=== PATIENT | male | born 1985 | race African-American/Black ===

== ENCOUNTER 2017-04-08 13:18 | Emergency (ER) | payer SELFPAY ==
[~2017-04-08] VITALS: Ht 182.9 cm; Wt 74.8 kg
[2017-04-08 13:45] VITALS: BP 131/79
[2017-04-08] MEDS ORDERED: PROC10TA57 PO (14:15)
[2017-04-08] MEDS ORDERED: AMOX1TAB61 PO (14:15)
[2017-04-08] MEDS ORDERED: FLUT9.9S NS (14:15)
--- NOTE | 2017-04-08 14:15 | PHYS DOC ---
Past Medical History Past Medical History: No Pertinent History Past Surgical History: No Surgical History Alcohol Use: Sober Drug Use: Marijuana Adult General Chief Complaint Chief Complaint: NAUSEA/VOMITING/DIARRHA HPI HPI Patient is a 31 year old female with no significant medical history who presents today with multiple, complaints. Patient is complaining of nasal congestion, sinus pressure both maxillary and frontal that began one week ago. Patient denies any fever. Patient's also complaining of intermittent episodes of dizziness. Patient states he believes he has a sinus infection. Patient's also complaining of nausea that began yesterday with some vomiting. Denies any abdominal pain. Denies any diarrhea. Review of Systems Review of Systems Constitutional: See history of present illness Eyes: Denies change in visual acuity, redness, or eye pain [] HENT: Nasal congestion, sore throat [] Respiratory: Denies cough or shortness of breath [] Cardiovascular: No additional information not addressed in HPI [] GI: nausea, vomiting, : Denies dysuria or hematuria [] Musculoskeletal: Denies back pain or joint pain [] Integument: Denies rash or skin lesions [] Neurologic: Denies headache, focal weakness or sensory changes [] Endocrine: Denies polyuria or polydipsia [] Allergies Allergies Allergies Coded Allergies Type Severity Reaction Last Updated Verified No Known Drug Allergies 11/20/13 No Physical Exam Physical Exam Constitutional: Well developed, well nourished, no acute distress, non-toxic appearance. [] HENT: Normocephalic, atraumatic, bilateral external ears normal, oropharynx moist, no oral exudates, nose normal. [] Mild frontal and maxillary sinus tenderness. Eyes: PERRLA, EOMI, conjunctiva normal, no discharge. [] Neck: Normal range of motion, no tenderness, supple, no stridor. [] Cardiovascular:Heart rate regular rhythm, no murmur [] Lungs & Thorax: Bilateral breath sounds clear to auscultation [] Abdomen: Bowel sounds normal, soft, no tenderness, no masses, no pulsatile masses. [] Skin: Warm, dry, no erythema, no rash. [] Back: No tenderness, no CVA tenderness. [] Extremities: No tenderness, no cyanosis, no clubbing, ROM intact, no edema. [] Neurologic: Alert and oriented X 3, normal motor function, normal sensory function, no focal deficits noted. [] Psychologic: Affect normal, judgement normal, mood normal. [] Current Patient Data Vital Signs Vital Signs Date Time Temp Pulse Resp B/P (MAP) Pulse Ox O2 Delivery O2 Flow Rate FiO2 04/08/17 13:45 97.9 64 16 99 Room Air 97.9 EKG EKG [] Radiology/Procedures Radiology/Procedures [] Course & Med Decision Making Course & Med Decision Making Pertinent Labs and Imaging studies reviewed. (See chart for details) Patient is in the ED with acute sinusitis. Discharged with a give Augmentin and Flonase. He was also complaining of nausea and vomiting. I suspect this is viral. Discharged with Compazine. Instructed to push fluids. Instructed to follow-up with his own doctor in 1-2 weeks. Discharged in stable condition. Dragon Disclaimer Dragon Disclaimer This electronic medical record was generated, in whole or in part, using a voice recognition dictation system. Departure Departure Impression: Primary Impression: Acute sinusitis Additional Impression: Nausea and vomiting Disposition: 01 HOME, SELF-CARE Condition: STABLE Patient Instructions: Nausea and Vomiting, Sinusitis Additional Instructions: You were seen for acute sinusitis. Please complete your antibiotics. Nausea and vomiting are probably viral. Push fluids. Take Zofran as needed. Follow-up with your own doctor in 1-2 weeks. Scripts Fluticasone Propionate (Flonase Allergy Relief) 9.9 Ml Stuart.susp 2 SPRAYS NS DAILY, #1 BOTTLE Prov: CHRISTA TONG APRN 04/08/17 Amoxicillin/Potassium Clav (AUGMENTIN 875-125 TABLET) 1 Each Tablet 1 TAB PO BID, #20 TAB Prov: CHRISTA TONG APRN 04/08/17 Prochlorperazine Maleate (Compazine) 10 Mg Tablet 10 MG PO Q8HRS, #30 TAB Prov: CHRISTA TONG APRN 04/08/17 Problem Qualifiers Primary Impression: Acute sinusitis Sinusitis location: frontal Recurrence: non-recurrent Qualified Codes: J01.10 - Acute frontal sinusitis, unspecified Additional Impression: Nausea and vomiting Vomiting type: unspecified Vomiting Intractability: non-intractable Qualified Codes: R11.2 - Nausea with vomiting, unspecified CHRISTA TONG APRN April 08, 2017 14:15
== END 2017-04-08 14:24 | disposition home or self-care (01) ==
LOC: ER 14:23
DX: J01.10 Acute frontal sinusitis, unspecified (principal); J01.00 Acute maxillary sinusitis, unspecified; R11.2 Nausea with vomiting, unspecified; R42 Dizziness and giddiness; F12.10 Cannabis abuse, uncomplicated
CPT/HCPCS: 99283

== ENCOUNTER 2017-05-03 15:49 | Emergency (ER) | payer SELFPAY ==
[~2017-05-03] VITALS: Ht 182.9 cm; Wt 74.8 kg
[~2017-05-03 15:49] MED LIST: AMOX1TAB61 PO; FLUT9.9S NS; PROC10TA57 PO
[2017-05-03] MEDS ORDERED: MECLIZINE HCL 12.5 MG TABLET. PO ONE (16:30)
[2017-05-03] MEDS ORDERED: IV NORMAL SALINE 1000ML BAG 1,000 ML IV ONE (16:30)
--- NOTE | 2017-05-03 16:31 | EKG ---
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
--- NOTE | 2017-05-03 16:37 | PHYS DOC ---
Past Medical History Past Medical History: No Pertinent History, Other Past Surgical History: No Surgical History Alcohol Use: Sober Drug Use: Marijuana Adult General Chief Complaint Chief Complaint: DIZZY/LIGHT HEADED HPI HPI Patient is a 31 year old male who presents with intermittent dizziness associated with fatigue and n/v over the past 4 days. States his emesis has resolved. He has minutes of dizziness at a time. Feels better when he is still. He denies fever or chills, vision changes, numbness, tingling, weakness, neck pain or manipulation. States he was treated for sinusitis recently and it improved. He denies ear pain or tinnitus. No diplopia. Review of Systems Review of Systems Constitutional: Denies fever or chills [] Eyes: Denies change in visual acuity, redness, or eye pain [] HENT: Denies nasal congestion or sore throat [] Respiratory: Denies cough or shortness of breath [] Cardiovascular: No additional information not addressed in HPI [] GI: Denies abdominal pain, bloody stools or diarrhea [] : Denies dysuria or hematuria [] Musculoskeletal: Denies back pain or joint pain [] Integument: Denies rash or skin lesions [] Neurologic: Denies headache, focal weakness or sensory changes [] Endocrine: Denies polyuria or polydipsia [] Current Medications Current Medications Current Medications Medications (Trade) Dose Ordered Sig/Aleksey Start Time Stop Time Status Last Admin Dose Admin Meclizine HCl (Antivert) 25 mg 1X ONCE 05/03/17 16:30 05/03/17 16:31 DC 05/03/17 16:30 25 MG Sodium Chloride 1,000 ml @ 1,000 mls/hr 1X ONCE 05/03/17 16:30 05/03/17 17:29 DC 05/03/17 16:30 1,000 MLS/HR Allergies Allergies Allergies Coded Allergies Type Severity Reaction Last Updated Verified No Known Drug Allergies 11/20/13 No Physical Exam Physical Exam Constitutional: Well developed, well nourished, no acute distress, non-toxic appearance. [] HENT: Normocephalic, atraumatic, bilateral external ears and TMs normal, oropharynx moist, no oral exudates, nose normal. [] Eyes: PERRLA, EOMI, conjunctiva normal, no discharge. [] Neck: Normal range of motion, no tenderness, supple. [] Cardiovascular:Heart rate regular rhythm [] Lungs & Thorax: Bilateral breath sounds clear to auscultation [] Abdomen: Bowel sounds normal, soft, no tenderness. [] Skin: Warm, dry, no erythema, no rash. [] Back: Normal range of motion. [] Extremities: No tenderness, ROM intact, no edema. [] Neurologic: Alert and oriented X 3, normal motor function, normal sensory function, no focal deficits noted, cranial nerves II through XII intact. [] Psychologic: Affect normal, judgement normal, mood normal. [] Current Patient Data Vital Signs Vital Signs Date Time Temp Pulse Resp B/P (MAP) Pulse Ox O2 Delivery O2 Flow Rate FiO2 05/03/17 17:44 62 21 123/79 (94) 99 05/03/17 16:44 Room Air 05/03/17 16:00 98.5 98.5 Lab Values Laboratory Tests Test 05/03/17 16:30 Sodium Level 144 mmol/L (136-145) Potassium Level 3.7 mmol/L (3.5-5.1) Chloride Level 105 mmol/L (98-107) Carbon Dioxide Level 32 mmol/L (21-32) Anion Gap 7 (6-14) Blood Urea Nitrogen 6 mg/dL (8-26) L Creatinine 1.0 mg/dL (0.7-1.3) Estimated GFR (Cockcroft-Gault) 104.8 Glucose Level 98 mg/dL (70-99) Calcium Level 9.2 mg/dL (8.5-10.1) Laboratory Tests 05/03/17 16:30 Radiology/Procedures Radiology/Procedures CT head without contrast IMPRESSION: 1. No acute intracranial abnormality is detected. 2. Fluid in the left maxillary sinus suggesting acute sinusitis. DICTATED and SIGNED BY: ANUM ELIZABETH MD DATE: 05/03/17 7776 Course & Med Decision Making Course & Med Decision Making Pertinent Labs and Imaging studies reviewed. (See chart for details) Workup is unremarkable. He is feeling better after medications here and like to go home. Return precautions given. He understands and agrees with plan. Dragon Disclaimer Dragon Disclaimer This electronic medical record was generated, in whole or in part, using a voice recognition dictation system. Departure Departure Impression: Primary Impression: Dizziness Additional Impressions: Nausea & vomiting Sinusitis Disposition: 01 HOME, SELF-CARE Condition: STABLE Referrals: NO PCP (PCP) Patient Instructions: Vertigo, [id number] Additional Instructions: Take meclizine as needed for dizziness. Use Flonase nasal spray to help with sinusitis. Take promethazine as needed for nausea. Follow-up with your primary care doctor. Return for any concerns. Scripts Promethazine Hcl (PROMETHAZINE HCL) 25 Mg Tablet 1 TAB PO PRN Q6HRS Y for NAUSEA/VOMITING, #20 TAB Prov: Jerilyn BETHEA MD 05/03/17 Meclizine Hcl (MECLIZINE HCL) 25 Mg Tablet 1 TAB PO PRN TID Y for DIZZINESS, #30 TAB Prov: Jerilyn BETHEA MD 05/03/17 Problem Qualifiers Additional Impressions: Nausea & vomiting Vomiting type: unspecified Vomiting Intractability: non-intractable Qualified Codes: R11.2 - Nausea with vomiting, unspecified Sinusitis Sinusitis location: maxillary Chronicity: acute Recurrence: not specified as recurrent Qualified Codes: J01.00 - Acute maxillary sinusitis, unspecified Jerilyn BETHEA MD May 03, 2017 16:37
--- NOTE | 2017-05-03 16:53 | RAD ---
CT of the head without contrast, 05/03/2017: History: Dizziness The ventricles are within normal limits in size. There is no shift of the midline structures. There is no evidence of acute intracranial hemorrhage or mass effect. There is a small amount of fluid in the left maxillary sinus. There is mild mucosal thickening in the ethmoid sinuses, more so on the left. The mastoid sinuses appear clear. IMPRESSION: 1. No acute intracranial abnormality is detected. 2. Fluid in the left maxillary sinus suggesting acute sinusitis. PQRS Compliance Statement: One or more of the following individualized dose reduction techniques were utilized for this examination: 1. Automated exposure control 2. Adjustment of the mA and/or kV according to patient size 3. Use of iterative reconstruction technique
[2017-05-03 16:54] LABS: CALCIUM 9.2 mg/dL (8.5-10.1); GFR 104.8; POTASSIUM 3.7 mmol/L (3.5-5.1)
[2017-05-03] MEDS ORDERED: MECL25TA3 PO (17:20)
[2017-05-03] MEDS ORDERED: PROM25TA10 PO (17:20)
[2017-05-03 17:44] VITALS: BP 123/79
== END 2017-05-03 18:00 | disposition home or self-care (01) ==
LOC: ER 15:49
DX: R42 Dizziness and giddiness (principal); J01.00 Acute maxillary sinusitis, unspecified; R11.2 Nausea with vomiting, unspecified; F12.10 Cannabis abuse, uncomplicated
CPT/HCPCS: 36415; 70450; 80048; 93005; 96360; 99285; J7030; J8597